=== PATIENT | male | born 1955 | race Asian ===

== ENCOUNTER 2016-12-17 10:22 | Emergency (ER) | payer MEDICAID ==
[~2016-12-17] VITALS: Ht 167.6 cm; Wt 68.0 kg
[~2016-12-17 10:22] MED LIST: ALBUTEROL SULFAT3 M1 IH; BANZEL400 MG GT; BIOTENE DRY MOU PO; BISCOLAX10 M1 PR; CETIRIZINE10 MG GT; COLACE100 MG/10 NG; DEXILANT60 MG GT; DIASTAT ACUDIAL20 MG GT; DIPHENHYDRAMINE25 M3 GT; DIPHENHYDRAMINE25 M8 GT; IBUPROFEN400 M1 GT; LEVETIRACETAM1000 MG GT; MAPAP325 MG GT; MELATONIN3 MG GT; PULMICORT0.5 MG/2 M HHN; SIMVASTATIN20 M1 GT; SINGULAIR10 MG GT; SINUS RINSE NS; VIMPAT200 MG GT
--- NOTE | 2016-12-17 10:25 | NUR ---
PT BIBA TO BED 3 AT THIS TIME.
[2016-12-17 10:30] VITALS: BP 148/82
--- NOTE | 2016-12-17 10:34 | NUR ---
BIBA DUE TO GT MALFUNCTION FROM BOARD AND CARE [facility], VITAL SIGN OBTAINED STABLE, PT NON VERBAL GT INTACT NO DRAINAGE NOTED, BUT THE GT IS BROWNISH ,WITH FOUL ODOR,FR 18, SKIN WARM TO TOUCH RESP. EVEN AND UNLABORED, PT WITH MENTAL RETARDATION.BODY ASSESSMENT DONE, SKIN INTACT.
--- NOTE | 2016-12-17 10:47 | NUR ---
DR. CLANCY AT BEDSIDE
[2016-12-17] MEDS ORDERED: LIDOCAINE 1% 500 MG/50 ML VIAL INJ ONE (12:00)
--- NOTE | 2016-12-17 12:04 | NUR ---
PT CALM,CAREGIVER AT BEDSIDE, VITAL SIGN STABLE, GT INTACT, NEW GT IN PLACE
[2016-12-17 13:31] VITALS: BP 111/55
--- NOTE | 2016-12-17 13:32 | NUR ---
PICKED UP BY [facility] FOR D/C TO [facility], PT EYES OPEN, AWAKE, NON VERBAL, JAKI CAREGIVER WITH THE PT, NEW GT INTACT, SKIN WARM TO TOUCH RESP. EVEN AND UNLABORED, NO BLEEDING NOTED ON GT.
== END 2016-12-17 13:32 ==
LOC: MED 10:22
DX: K94.23 Gastrostomy malfunction (principal); J45.909 Unspecified asthma, uncomplicated; K21.9 Gastro-esophageal reflux disease without esophagitis
CPT/HCPCS: 43760; 74241; 99284; J2001; Q0092

== ENCOUNTER 2018-04-03 20:28 | Emergency (ER) | payer MEDICAID ==
[~2018-04-03] VITALS: Ht 162.6 cm; Wt 72.6 kg
[~2018-04-03 20:28] MED LIST changes: +ACET-7568 GT; +ALBU-74 IH; -ALBUTEROL SULFAT3 M1 IH; -BANZEL400 MG GT; -BIOTENE DRY MOU PO; +BISA10SU62 PR; -BISCOLAX10 M1 PR; +CETI-55 GT; -CETIRIZINE10 MG GT; -COLACE100 MG/10 NG; -DEXILANT60 MG GT; +DEXL60EC GT; -DIASTAT ACUDIAL20 MG GT; +DIAZ20GE GT; +DIPH-722 GT; +DIPH25TA39 GT; -DIPHENHYDRAMINE25 M3 GT; -DIPHENHYDRAMINE25 M8 GT; +DOCU100L NG; +IBUP-2230 GT; -IBUPROFEN400 M1 GT; +LACO200T GT; +LEVE100021 GT; -LEVETIRACETAM1000 MG GT; -MAPAP325 MG GT; +MELA3TAB GT; -MELATONIN3 MG GT; +MONT10TA35 GT; +PUL.5N HHN; -PULMICORT0.5 MG/2 M HHN; +RUFI400T GT; +SIMV20TA6 GT; -SIMVASTATIN20 M1 GT; -SINGULAIR10 MG GT; -VIMPAT200 MG GT; +[UNRECOGNIZED DRUG - CODE] PO
[2018-04-03 20:29] VITALS: BP 129/74
--- NOTE | 2018-04-03 20:30 | NUR ---
PT [facility]. TAKEN TO BED 8
--- NOTE | 2018-04-03 20:35 | NUR ---
PATIENT IS A 62 Y/O MALE WHO PRESENTS TO THE ED C/O SEIZURE. PT IS FROM [facility]. PER [facility] EXPERIENCED TWO SEIZURES WITH UNKNOWN TIMES. PT IS IN NO VISIBLE SIGNS OF PAIN. PT IN NO SIGNS OF CP, SOB, N/V/D. PT IS NONVERBAL, PT HAS G-TUBE, RR EVEN/UNLABORED. PT REPOSITIONED FOR COMFORT, BED IN LOWEST POSITION. ER MD DR. CLANCY NOTIFIED. WILL CONTINUE TO MONITOR.
[2018-04-03] MEDS ORDERED: NACL 0.9% 1,000 ML IV ONE (20:40)
--- NOTE | 2018-04-03 20:41 | NUR ---
Dr. Flores evaluating patient at bedside.
--- NOTE | 2018-04-03 21:00 | NUR ---
# 13 FR STRAIGHT catheter with utilizing sterile technique. Immediate return of 30 ml CLEAR urine noted. Urine sample collected and sent to lab. Pt tolerated procedure WELL. Addendum: 04/03/18 at 2140 by MEDDCV # 14 FR STRAIGHT catheter with utilizing sterile technique. Immediate return of 30 ml CLEAR urine noted. Urine sample collected and sent to lab. Pt tolerated procedure WELL.
[2018-04-03 21:05] LABS: APPEARANCE,URINE CLEAR (CLEAR); BASOPHILS % (AUTO) 0.5 % (0.0-2.0); BILIRUBIN,URINE NEGATIVE (NEGATIVE); BLOOD, URINE NEGATIVE (NEGATIVE); COLOR,URINE YELLOW (YELLOW); EOSINOPHILS # (AUTO) 0.1 K/uL (0-0.4); EOSINOPHILS % (AUTO) 2.2 % (0.0-4.0); HEMATOCRIT 41.6 % (36-52); HEMOGLOBIN 13.1 g/dL (12.0-18.0); LEUKOCYTE ESTERASE ,URINE NEGATIVE (NEGATIVE); LYMPHOCYTES # (AUTO) 1.4 K/uL (2.0-11.5); LYMPHOCYTES % (AUTO) 29.9 % (20.5-51.1); MEAN CORPUSCULAR HEMOGLOBIN 22 pg (27-31); MEAN CORPUSCULAR HGB CONC 31 g/dL (33-37); MEAN CORPUSCULAR VOLUME 70.3 fL (80-94); MONOCYTES # (AUTO) 0.5 K/uL (0.8-1.0); MONOCYTES % (AUTO) 10.8 % (1.7-9.3); NEUTROPHILS # (AUTO) 2.6 K/uL (1.8-7.7); NEUTROPHILS % (AUTO) 56.6 % (42.2-75.2); NITRITE, URINE NEGATIVE (NEGATIVE); PH,URINE 7.5 (5.0-9.0); PLATELET COUNT (AUTO) 175 K/uL (140-450); RED BLOOD CELL COUNT(AUTO) 5.92 MIL/uL (4.20-6.10); RED CELL DISTRIBUTION WIDTH 14.7 % (11.6-13.7); UGLUCOSE NEGATIVE (NEGATIVE); WHITE BLOOD COUNT (AUTO) 4.6 K/uL (4.8-10.8)
[2018-04-03 21:21] LABS: RBC,URINE 0-5 (RARE) /HPF (0-5); WBC,URINE 0-5 (RARE) /HPF (0-5)
[2018-04-03 21:31] LABS: ANION GAP 14.4 (8-16); CARBON DIOXIDE 21.7 mmol/L (21-32); CREATININE 0.7 mg/dL (0.7-1.3); POTASSIUM 3.1 mmol/L (3.5-5.1)
[2018-04-03 21:37] LABS: TOTAL BILIRUBIN 0.2 mg/dL (0.0-1.0)
[2018-04-03] MEDS ORDERED: POTASSIUM CHLORIDE 10 MEQ TABER PO ONE (21:50)
--- NOTE | 2018-04-03 21:59 | NUR ---
LUIS ENRIQUE CONTACT [phone]
[2018-04-03] MEDS ORDERED: POTASSIUM CHLORIDE 20% 40 MEQ/15 ML UDC GT ONE (22:00)
[2018-04-03] MEDS ORDERED: POTASSIUM CHLORIDE 20% 40 MEQ/15 ML UDC ONE (22:00)
--- NOTE | 2018-04-03 22:00 | NUR ---
HETAL COMMERCIAL LOAN COORDINATORJAZMINELUIS ENRIQUE WENT HOME TO RECEIVE PT FOR TRANSPORT. [facility] CALLED. ETA 2 HOURS.
--- NOTE | 2018-04-03 22:15 | NUR ---
PATIENT RESTING AT THIS TIME. NO SIGNS OF DISTRESS.
--- NOTE | 2018-04-03 23:25 | NUR ---
[facility] TRANSPORT AT BEDSIDE
--- NOTE | 2018-04-03 23:33 | NUR ---
PT TAKEN BY [facility] TRANSPORT TO PT BOARD AND CARE
[2018-04-03 23:35] VITALS: BP 105/75
--- NOTE | 2018-04-03 23:35 | NUR ---
Patient discharged with v/s stable. Written and verbal after care instructions given and explained to AARON and LUIS ENRIQUE AIR HAMMER OPERATOR. Ambulance Transport with to custodial. All questions addressed prior to discharge. Advised to follow up with PMD.
== END 2018-04-03 23:35 | disposition home or self-care (01) ==
LOC: MED 20:28
DX: G40.909 Epilepsy, unspecified, not intractable, without status epilepticus (principal); E87.6 Hypokalemia; J45.909 Unspecified asthma, uncomplicated; K21.9 Gastro-esophageal reflux disease without esophagitis; Z79.899 Other long term (current) drug therapy
CPT/HCPCS: 36415; 80053; 81001; 85025; 96360; 96361; 99285; C1758

== ENCOUNTER 2018-04-28 20:09 | Emergency (ER) | payer MEDICAID ==
[~2018-04-28] VITALS: Ht 165.1 cm; Wt 61.2 kg
[2018-04-28 20:09] VITALS: BP 113/68
[~2018-04-28 20:09] MED LIST changes: -DEXL60EC GT; -DIPH-722 GT; -DOCU100L NG; -SINUS RINSE NS
--- NOTE | 2018-04-28 20:09 | NUR ---
BIB EMS FROM [facility]. REPORTED BY FIRE AND EMS THAT PT HAD A 10-15 SEC SEIZURE AT 19:30. WITNESSED BY [facility] STAFF. NO SEIZURE ACTIVITY WITNESSED BY FIRE OR EMS. PT HAS HX OF MENTAL DISABILITY AND QUADRIPLEGIA. VSS STABLE WITHOUT EVIDANCE OF PAIN AT THIS TIME. PT IS AFEBRILE 89.3. HE IS AWAKE AND FOLLOWS COMMANDS TO THE BEST OF HIS ABILITY. EMS DENIES N/V/D; SKIN IS PINK/WARM/DRY; AAOX4 UNABLE TO AMBULATE; LUNGS CLEAR BL; HR EVEN AND REGULAR; NO CP, SOB, OR COUGH AT THIS TIME; 0/10 AT THIS TIME; VSS; PATIENT POSITIONED FOR COMFORT; HOB ELEVATED; BEDRAILS UP X2; SEIZURE PADS IN PLACE; BED DOWN. ER MD MADE AWARE OF PT STATUS. CONTINUE TO MONITOR.
--- NOTE | 2018-04-28 20:09 | NUR ---
PATIENT BIB ALS TO ER BED 7.
--- NOTE | 2018-04-28 20:09 | NUR ---
Waleska mosqueda in [facility] - 04/28/18 at 2013 by MAURI PT BIBA BLS TAKEN TO BED 7
[2018-04-28] MEDS ORDERED: [UNRECOGNIZED DRUG - CODE] GT (20:31)
[2018-04-28] MEDS ORDERED: METO25TE2 GT (20:31)
[2018-04-28] MEDS ORDERED: ESOM40PK GT (20:31)
[2018-04-28] MEDS ORDERED: ALBU0.0912 INH (20:31)
[2018-04-28] MEDS ORDERED: [UNRECOGNIZED DRUG - CODE] GT (20:31)
[2018-04-28] MEDS ORDERED: [UNRECOGNIZED DRUG - CODE] GT (20:31)
[2018-04-28] MEDS ORDERED: POLY17PD GT (20:31)
--- NOTE | 2018-04-28 21:28 | NUR ---
X-Ray at bedside.
[2018-04-28] MEDS ORDERED: levETIRAcetam 100 MG/ML VIAL IV ONE ×2 (21:45→22:14)
--- NOTE | 2018-04-28 22:00 | NUR ---
PT IN BED WITH EYES OPEN AND RESTING. POSITIONED FOR COMFORT. CAREGIVER AT BEDSIDE. VSS. CONTINUE TO MONITOR.
[2018-04-28 22:12] LABS: BASOPHILS % (AUTO) 0.4 % (0.0-2.0); EOSINOPHILS # (AUTO) 0.1 K/uL (0-0.4); EOSINOPHILS % (AUTO) 0.6 % (0.0-4.0); HEMATOCRIT 41.8 % (36-52); HEMOGLOBIN 13.2 g/dL (12.0-18.0); LYMPHOCYTES # (AUTO) 1.5 K/uL (2.0-11.5); LYMPHOCYTES % (AUTO) 14.9 % (20.5-51.1); MEAN CORPUSCULAR HEMOGLOBIN 22 pg (27-31); MEAN CORPUSCULAR HGB CONC 32 g/dL (33-37); MEAN CORPUSCULAR VOLUME 70.8 fL (80-94); MONOCYTES # (AUTO) 0.8 K/uL (0.8-1.0); MONOCYTES % (AUTO) 7.8 % (1.7-9.3); NEUTROPHILS # (AUTO) 7.8 K/uL (1.8-7.7); NEUTROPHILS % (AUTO) 76.3 % (42.2-75.2); PLATELET COUNT (AUTO) 216 K/uL (140-450); RED BLOOD CELL COUNT(AUTO) 5.91 MIL/uL (4.20-6.10); RED CELL DISTRIBUTION WIDTH 14.6 % (11.6-13.7); WHITE BLOOD COUNT (AUTO) 10.2 K/uL (4.8-10.8)
[2018-04-28 22:21] LABS: ANION GAP 10.7 (8-16); CARBON DIOXIDE 28.9 mmol/L (21-32); CREATININE 0.8 mg/dL (0.7-1.3); POTASSIUM 3.6 mmol/L (3.5-5.1)
--- NOTE | 2018-04-28 22:30 | NUR ---
Dr. Nuñez evaluating patient at bedside.
--- NOTE | 2018-04-28 23:00 | NUR ---
AWAITING DISCHARGE DISPOSTION FROM DR TAPIA
[2018-04-28 23:23] VITALS: BP 111/58
--- NOTE | 2018-04-28 23:23 | NUR ---
Patient discharged with v/s stable. Written and verbal after care instructions given and explained. Patient verbalized understanding. Ambulance Transport with to long-term. All questions addressed prior to discharge. Advised to follow up with PMD.
--- NOTE | 2018-04-28 23:39 | NUR ---
PT IS DISCHARGED AT THIS TIME. CAREGIVER AT BEDSIDE. AWITING TRANSPORTATION. VSS. CONTINUE TO MONITOR. UNTIL PT LEAVES [facility] ER.
--- NOTE | 2018-04-29 00:05 | NUR ---
[facility] TRANSPORT AT BEDSIDE
--- NOTE | 2018-04-29 00:10 | NUR ---
[facility] TRANSPORT PICKED UP PATIENT TO RETURN TO BOARD AND CARE
[2018-04-29] MEDS ORDERED: levETIRAcetam 1,000 MG in NACL 0.9% 100 ML IV SCH (09:00)
== END 2018-04-28 23:39 | disposition home or self-care (01) ==
LOC: MED 20:09
DX: R56.9 Unspecified convulsions (principal); J44.9 Chronic obstructive pulmonary disease, unspecified; K21.9 Gastro-esophageal reflux disease without esophagitis; F79 Unspecified intellectual disabilities; Z93.1 Gastrostomy status
CPT/HCPCS: 36415; 71045; 80048; 85025; 93005; 96365; 99285; J1953

== ENCOUNTER 2018-05-10 19:46 | Emergency (ER) | payer SELFPAY ==
[~2018-05-10] VITALS: Ht 162.6 cm; Wt 65.8 kg
[2018-05-10 19:46] VITALS: BP 119/70
[~2018-05-10 19:46] MED LIST changes: +ALBU0.0912 INH; +ESOM40PK GT; +METO25TE2 GT; +POLY17PD GT; +[UNRECOGNIZED DRUG - CODE] GT; +[UNRECOGNIZED DRUG - CODE] GT; +[UNRECOGNIZED DRUG - CODE] GT
--- NOTE | 2018-05-10 19:46 | NUR ---
PT [facility]. TAKEN TO BED 10
--- NOTE | 2018-05-10 19:50 | NUR ---
PATIENT IS A 63 Y/O MALE BIB BLS WHO PRESENTS TO THE ED C/O SEIZURES. PER [facility], PT REPORTED TO HAVE X5 EPISODES OF SEIZURES LASTING 1-2 SECONDS X1 HOUR AGO. PT DOES NOT APPEAR TO BE IN ANY SIGN OF PAIN. PT IN NO SIGNS OF CP, SOB, N/V/D. PT NONVERBAL, RR EVEN/UNLABORED. PT REPOSITIONED FOR COMFORT, BED IN LOWEST POSITION. ER MD DR. TAPIA NOTIFIED. WILL CONTINUE TO MONITOR.
[2018-05-10] MEDS ORDERED: BENZ1TAB42 GT (20:46)
[2018-05-10] MEDS ORDERED: LORazepam 2 MG/ML VIAL IVP ONE (20:50)
[2018-05-10] MEDS ORDERED: levETIRAcetam 1,000 MG in NACL 0.9% 100 ML IV ONE (20:50)
[2018-05-10] MEDS ORDERED: levETIRAcetam 100 MG/ML VIAL IV ONE (20:56)
[2018-05-10 21:07] LABS: BASOPHILS % (AUTO) 0.4 % (0.0-2.0); EOSINOPHILS # (AUTO) 0.2 K/uL (0-0.4); EOSINOPHILS % (AUTO) 2.8 % (0.0-4.0); HEMATOCRIT 41.8 % (36-52); HEMOGLOBIN 12.9 g/dL (12.0-18.0); LYMPHOCYTES # (AUTO) 2.3 K/uL (2.0-11.5); LYMPHOCYTES % (AUTO) 30.1 % (20.5-51.1); MEAN CORPUSCULAR HEMOGLOBIN 22 pg (27-31); MEAN CORPUSCULAR HGB CONC 31 g/dL (33-37); MEAN CORPUSCULAR VOLUME 70.4 fL (80-94); MONOCYTES # (AUTO) 0.8 K/uL (0.8-1.0); NEUTROPHILS # (AUTO) 4.2 K/uL (1.8-7.7); NEUTROPHILS % (AUTO) 55.7 % (42.2-75.2); PLATELET COUNT (AUTO) 176 K/uL (140-450); RED BLOOD CELL COUNT(AUTO) 5.93 MIL/uL (4.20-6.10); RED CELL DISTRIBUTION WIDTH 14.9 % (11.6-13.7); WHITE BLOOD COUNT (AUTO) 7.6 K/uL (4.8-10.8)
--- NOTE | 2018-05-10 21:15 | NUR ---
Dr. Nuñez evaluating patient at bedside.
[2018-05-10 21:18] LABS: ANION GAP 10.9 (8-16); CARBON DIOXIDE 26.9 mmol/L (21-32); CREATININE 0.7 mg/dL (0.7-1.3); POTASSIUM 3.8 mmol/L (3.5-5.1)
[2018-05-10 21:48] LABS: PHENOBARBITAL < 1 ug/ml (15-40)
--- NOTE | 2018-05-10 22:35 | NUR ---
CALLED POORNIM[facility] AT [facility]. PT WILL BE TRANSPORTED BACK.
--- NOTE | 2018-05-10 23:07 | NUR ---
[facility] TRANSPORT AT BEDSIDE
[2018-05-10 23:10] VITALS: BP 111/71
--- NOTE | 2018-05-10 23:10 | NUR ---
Patient discharged with v/s stable. Written and verbal after care instructions given and explained. Patient verbalized understanding. Ambulance Transport with to retirement. All questions addressed prior to discharge. Advised to follow up with PMD.
== END 2018-05-10 23:10 | disposition home or self-care (01) ==
LOC: MED 19:46
DX: G40.909 Epilepsy, unspecified, not intractable, without status epilepticus (principal); J44.9 Chronic obstructive pulmonary disease, unspecified; K21.9 Gastro-esophageal reflux disease without esophagitis; Z79.899 Other long term (current) drug therapy
CPT/HCPCS: 36415; 71045; 80048; 80156; 80184; 80185; 85025; 93005; 96365; 96375; 99285; J1953; J2060

== ENCOUNTER 2018-06-23 21:54 | Emergency (ER) | payer SELFPAY ==
[~2018-06-23] VITALS: Ht 124.5 cm; Wt 54.4 kg
[2018-06-23 21:54] VITALS: BP 177/69
[~2018-06-23 21:54] MED LIST changes: +BENZ1TAB99 GT
--- NOTE | 2018-06-23 21:54 | NUR ---
PT TRANSFERED TO BED 5 FROM [facility]. TRANSPORTED TO [facility] VIA EMS. PT VSS UPON ARRIVAL.
--- NOTE | 2018-06-23 21:55 | NUR ---
PT BIBA FROM [facility] DUE TO G-TUBE COMING OUT. G-TUBE CAME OUT APPROX. 2109 ACCORDING TO THE BATTING MACHINE OPERATOR. KING. PT IS A QUADRAPELEGIC. SKIN IS PINK/WARM/DRY; NON VERBAL; HR EVEN AND REGULAR; PATIENT STATES PAIN OF 0/10 USING FLACC SCALE AT THIS TIME; VSS; PATIENT POSITIONED FOR COMFORT; HOB ELEVATED; BEDRAILS UP X2; BED DOWN. ER MD MADE AWARE OF PT STATUS.
--- NOTE | 2018-06-23 21:55 | NUR ---
Pt BIBA with complaint of G-tube pulled out "about [address] ago". [address] Flores. Inserted 18 fr, 15 ml G-tube in stoma without difficulty. Aspirated tube feeding/stomach contents for placement check. Pt tolerated well.
--- NOTE | 2018-06-23 22:15 | NUR ---
X RAY WITH PT
--- NOTE | 2018-06-23 22:51 | NUR ---
WAITING FOR AMBULANCE TO TAKE HOME, VITALS STABLE
[2018-06-23 23:26] VITALS: BP 117/69
--- NOTE | 2018-06-23 23:26 | NUR ---
Patient discharged with v/s stable. Written and verbal after care instructions given and explained. Patient's laboratory animal care veterinarian verbalized understanding. Ambulance Transport with to jail. All questions addressed prior to discharge. Advised to follow up with PMD.
== END 2018-06-23 23:26 ==
LOC: MED 21:54
DX: Z43.1 Encounter for attention to gastrostomy (principal); J44.9 Chronic obstructive pulmonary disease, unspecified; K21.9 Gastro-esophageal reflux disease without esophagitis; Z79.899 Other long term (current) drug therapy
CPT/HCPCS: 43760; 74018; 99284

== ENCOUNTER 2020-02-24 19:13 | Emergency (ER) | payer MEDICAID ==
[~2020-02-24] VITALS: Ht 167.6 cm; Wt 61.2 kg
[~2020-02-24 19:13] MED LIST changes: +BENZ-203 GT; -BENZ1TAB99 GT; +GUAI-1216 GT; -MELA3TAB GT; +MELA3TAB56 GT; +SIMV-30 GT; -SIMV20TA6 GT; -[UNRECOGNIZED DRUG - CODE] GT
--- NOTE | 2020-02-24 19:22 | NUR ---
PT BIBA BLS TO ER BED 04
[2020-02-24 19:27] VITALS: BP 128/76
--- NOTE | 2020-02-24 19:49 | NUR ---
64 Y/O M BIBA C/O CLOGGED G-TUBE, AND G-TUBE REPLACEMENT. PT NONVERBAL, AAO X0. NO RESPIRATORY DISTRESS NOTED, AIRWAY INTACT, SYMMETRICAL CHEST RISE. LUNG SOUNDS CLEAR UPON AUSCULTATION. PT DOES PRESENT WITH A CLOGGED G-TUBE. PER FACILITY, G-TUBE WAS RECENTLY REPLACED, BUT WAS REPLACED WITH A SMALLER CATHETER AND KEPT ON CLOGGING UP. BED IN LOWEST POSITION, SIDE RAIL UP X2. WILL CONTINUE TO MONITOR. NKA
--- NOTE | 2020-02-24 20:15 | NUR ---
DR. SELLERS AT BEDSIDE TO INSERT G-TUBE.
--- NOTE | 2020-02-24 20:18 | NUR ---
20FC G-TUBE INSERTED BY DR. SELLERS. PENDING X-RAY FOR CONFIRMATION.
--- NOTE | 2020-02-24 20:30 | NUR ---
RAD AT BEDSIDE.
--- NOTE | 2020-02-24 21:10 | NUR ---
SPOKE TO [facility] REGARDING UPDATE FOR PT. PT WILL BE TRANSFERRING BACK TO [facility], ETA 2304.
--- NOTE | 2020-02-24 22:00 | NUR ---
PT RESTING IN BED, ASLEEP. HOB ELEVATED. NO RESPIRATORY DISTRESS. BED IN LOWEST POSTION. SIDE RAIL UP X2. WILL CONTINUE TO MONITOR.
--- NOTE | 2020-02-24 23:00 | NUR ---
[facility] CALLED TO NOTIFY THEY ARE RUNNING 30 MINS LATE.
[2020-02-24 23:42] VITALS: BP 128/76
--- NOTE | 2020-02-24 23:44 | NUR ---
Patient discharged with v/s stable. Written and verbal after care instructions given and explained. Patient verbalized understanding. Ambulatory with steady gait. All questions addressed prior to discharge. Advised to follow up with PMD.
== END 2020-02-24 23:43 | disposition home or self-care (01) ==
LOC: MED 19:13
DX: K94.23 Gastrostomy malfunction (principal); J44.9 Chronic obstructive pulmonary disease, unspecified; K21.9 Gastro-esophageal reflux disease without esophagitis; Z43.1 Encounter for attention to gastrostomy; Z98.890 Other specified postprocedural states; Z79.899 Other long term (current) drug therapy
CPT/HCPCS: 43762; 74240; 99284; Q0092

== ENCOUNTER 2020-08-20 10:59 | Emergency (ER) | payer MEDICAID, SELFPAY ==
[~2020-08-20] VITALS: Ht 165.1 cm; Wt 70.3 kg
[~2020-08-20 10:59] MED LIST changes: -ACET-7568 GT; +ACET-8296 GT; -ALBU-74 IH; -ALBU0.0912 INH; +ASCO-672 GT; +BISA-218 RC; -BISA10SU62 PR; +BRIV100T GT; -DIAZ20GE GT; +DIAZ20GE MR; +DIPH25CA94 PO; -DIPH25TA39 GT; -ESOM40PK GT; +FAMO-90 GT; -GUAI-1216 GT; +IBUP-1842 PO; -IBUP-2230 GT; -LEVE100021 GT; +LOPE-202 PO; +MELA3TAB21 GT; -MELA3TAB56 GT; +METO-485 GT; +NUTR-813 GT; +PANT40EC PO; +PRON INH; +SENN-74 PO; +[UNRECOGNIZED DRUG - CODE] GT
[2020-08-20 11:04] VITALS: BP 120/71
[2020-08-20 15:31] VITALS: BP 110/65
== END 2020-08-20 15:29 ==
LOC: MED 10:59
DX: K94.23 Gastrostomy malfunction (principal); J45.909 Unspecified asthma, uncomplicated; K21.9 Gastro-esophageal reflux disease without esophagitis; Z98.890 Other specified postprocedural states; Z79.899 Other long term (current) drug therapy; Z95.0 Presence of cardiac pacemaker; Y84.9 Medical procedure, unspecified as the cause of abnormal reaction of the patient, or of later complication, without mention of misadventure at the time of the procedure
CPT/HCPCS: 99281

== ENCOUNTER 2021-01-14 09:31 | Emergency (ER) | payer MEDICAID, SELFPAY ==
[~2021-01-14] VITALS: Ht 170.2 cm; Wt 61.2 kg
[~2021-01-14 09:31] MED LIST changes: +DOCU100T42 GT; -[UNRECOGNIZED DRUG - CODE] GT
--- NOTE | 2021-01-14 09:32 | NUR ---
[facility]A BLS TAKEN TO BED 9
[2021-01-14 09:40] VITALS: BP 108/75
--- NOTE | 2021-01-14 09:47 | NUR ---
65 YEAR OLD MALE BIBA FROM [facility] FOR J TUBE LEAKING. PER EMS, [facility] STATES THAT PT HAD SOME COFFEE GROUND EMESIS NEAR STOMA SITE AND THAT THE J TUBE ITSELF WAS LEAKING NEAR ONE OF THE PORTS. PT ALERT AND AWAKE, AOX0 BASELINE, BREATHING EVEN AND UNLABORED, SKIN WARM AND DRY. BED IN LOWEST POSITION, LOCKED, BED RAIL UPX1. PMH - QUADREPLEGIC, SEIZURE, BARETTES ESOPHAGUS ALLERGIES - NKA
--- NOTE | 2021-01-14 09:55 | NUR ---
Dr. Flores is evaluating patient at bedside
--- NOTE | 2021-01-14 10:00 | NUR ---
J TUBE REPLACED BY DR CLANCY AT BEDSIDE, NO COMPLICATIONS NOTED.
[2021-01-14] MEDS ORDERED: DIAZ20GE TOP (10:17)
[2021-01-14] MEDS ORDERED: BACL10TA4 GT (10:17)
[2021-01-14] MEDS ORDERED: [UNRECOGNIZED DRUG - CODE] GT (10:17)
[2021-01-14] MEDS ORDERED: ZINC220C28 GT (10:17)
[2021-01-14] MEDS ORDERED: CHOL500040 GT (10:17)
[2021-01-14] MEDS ORDERED: FAMO-90 GT (10:18)
--- NOTE | 2021-01-14 12:25 | NUR ---
REPORT GIVEN TO HAIRSPRING STUDDER AT FACILITY, INFORMED OF CHANGE FROM J TUBE TO G TUBE BY JACKY
--- NOTE | 2021-01-14 13:04 | NUR ---
Pt in bed, equal and visible rise and fall of chest. Side rails up bed locked and in lowest position. VSS, will continue to monitor.
--- NOTE | 2021-01-14 15:40 | NUR ---
dPatient discharged with v/s stable. Written and verbal after care instructions given and explained, signed by 2 nurses . Patient verbalized understanding. Ambulance Transport with to [facility]. All questions addressed prior to discharge. Advised to follow up with PMD.
[2021-01-14 15:41] VITALS: BP 107/58
== END 2021-01-14 15:40 | disposition home or self-care (01) ==
LOC: MED 09:31
DX: K94.23 Gastrostomy malfunction (principal); R05 Cough; K21.9 Gastro-esophageal reflux disease without esophagitis; J45.909 Unspecified asthma, uncomplicated; Z79.899 Other long term (current) drug therapy; Z95.0 Presence of cardiac pacemaker; Z98.890 Other specified postprocedural states
CPT/HCPCS: 49450; 99284

== ENCOUNTER 2021-10-25 18:23 | Emergency (ER) | payer MEDICAID ==
[~2021-10-25] VITALS: Ht 162.6 cm; Wt 57.2 kg
[~2021-10-25 18:23] MED LIST changes: -ACET-8296 GT; +BACL10TA4 GT; -BENZ-203 GT; +BENZ-315 GT; -BISA-218 RC; +CHOL500040 GT; +CLOB10TA2 GT; -DIAZ20GE MR; -DIPH25CA94 PO; +ESOM40EC PO; -IBUP-1842 PO; +LACT10SO11 GT; -LOPE-202 PO; -METO-485 GT; +METO5SOL20 GT; +MULT-2416 TD; -NUTR-813 GT; +OMEP20EC11 GT; -PANT40EC PO; -PRON INH; -PUL.5N HHN; +PUL.5N NEB; +SENN-73 GT; -SENN-74 PO; +ZINC220C28 GT; -[UNRECOGNIZED DRUG - CODE] GT; -[UNRECOGNIZED DRUG - CODE] GT; -[UNRECOGNIZED DRUG - CODE] PO
--- NOTE | 2021-10-25 18:23 | NUR ---
ALMA ROSA ROSE FROM [facility] TO HAVE MORALES BAG REMOVED FROM G-TUBE. DR. CUENCA REMOVED MORALSE BAG FROM PT G-TUBE WHILE STILL ON AMBULANCE GURNEY
[2021-10-25 18:26] VITALS: BP 134/96
--- NOTE | 2021-10-25 18:31 | NUR ---
PT BIBA AND TAKEN TO BED 3
--- NOTE | 2021-10-25 18:42 | NUR ---
SPOKE TO ASHLEY FROM [facility] . STATES SHE CANNOT PICK PATIENT UP UNTIL 9-10AM TOMORROW MORNING.
[2021-10-25] MEDS ORDERED: DEXT 5% / LACT RING 1,000 ML IV ONE (19:10)
--- NOTE | 2021-10-25 20:47 | NUR ---
PATIENT SLEEPING COMFORTABL ESTABLE VITALS SIGNS IN NORMAL LIMITS
--- NOTE | 2021-10-26 05:04 | NUR ---
PATIENT SLEEPING COMFORTABLE AT THIS TIME VITALS SIGNS IN NORMAL LIMITS SR 98 ON MONITOR//DiCaprio RN
--- NOTE | 2021-10-26 07:08 | NUR ---
PATIENT ALERT NOT COMPLAINING OF PAIN VITALS SIGNS IN NORMAL LIMITS SR 86
--- NOTE | 2021-10-26 07:35 | NUR ---
RECEIVED REPORT FROM BJORN AGUILERA. ASSUMED CARE AT THIS TIME.
--- NOTE | 2021-10-26 07:51 | NUR ---
PATIENT SITTING UP IN BED, EYES OPEN. ON BEDSIDE BRANCH LENDING MANAGER, WILL CONTINUE TO MONITOR.
--- NOTE | 2021-10-26 09:00 | NUR ---
SPOKE WITH CAREGIVER ASHLEY STATING SHE IS ENROUTE TO PICK PATIENT UP.
--- NOTE | 2021-10-26 10:19 | NUR ---
CAREGIVER BEDSIDE TO TRANSPORT PATIENT HOME.
[2021-10-26 10:36] VITALS: BP 128/79
--- NOTE | 2021-10-26 10:36 | NUR ---
Patient discharged with v/s stable. Written and verbal after care instructions given and explained. Patient verbalized understanding. Wheel Chair Assisted with by caregiver. All questions addressed prior to discharge. Advised to follow up with PMD.
--- NOTE | 2021-11-05 10:15 | NUR ---
LATE ENTRY- IV DEXTROSE 5%/LR DISCONTINUED AT 1036.
== END 2021-10-26 10:36 ==
LOC: MED 18:23
DX: K94.23 Gastrostomy malfunction (principal); J45.909 Unspecified asthma, uncomplicated; K21.9 Gastro-esophageal reflux disease without esophagitis; Z79.899 Other long term (current) drug therapy; Z98.890 Other specified postprocedural states; Z95.0 Presence of cardiac pacemaker
CPT/HCPCS: 96365; 96366; 99285

== ENCOUNTER 2023-01-08 23:43 | Inpatient (IN) | payer MEDICAID ==
[~2023-01-08] VITALS: Ht 165.1 cm; Wt 50.8 kg
[~2023-01-08 23:43] MED LIST changes: +CLOB10TA GT; -CLOB10TA2 GT; -FAMO-90 GT; +FER300L GT; +MONT-72 GT; -MONT10TA35 GT
--- NOTE | 2023-01-08 23:44 | NUR ---
PT TO 5 BIBA ALS
--- NOTE | 2023-01-08 23:45 | NUR ---
Patient being evaluated by physician at bedside.
--- NOTE | 2023-01-08 23:45 | NUR ---
PT RC'D IN ROOM 5,PT BIBA FOR LOW BP. PT WAS IN THE MIDDLE OF A TRANSFER, FOR ABNORMAL LAB VALUES, WHEN ALS NOTICED THAT PT BP WAS LOW, 79/38. ALS DECIDED TO BRING PT TO ER FOR LOW BP. NKDA HX OF HEP B, SEIZURES, QUADRIPLEGIA, ASTHMA, HERNIA, GASTRITIS
[2023-01-08 23:50] VITALS: BP 107/41
[2023-01-09] MEDS ORDERED: NACL 0.9% 1,000 ML IV ONE
[2023-01-09 00:37] LABS: BASOPHILS % (AUTO) 0.2 % (0.0-2.0); EOSINOPHILS # (AUTO) 0.1 K/uL (0-0.4); EOSINOPHILS % (AUTO) 0.8 % (0.0-4.0); LYMPHOCYTES # (AUTO) 1.3 K/uL (2.0-11.5); LYMPHOCYTES % (AUTO) 15.9 % (20.5-51.1); MEAN CORPUSCULAR HEMOGLOBIN 25 pg (27-31); MEAN CORPUSCULAR HGB CONC 32 g/dL (33-37); MEAN CORPUSCULAR VOLUME 76.5 fL (80-94); MONOCYTES # (AUTO) 0.8 K/uL (0.8-1.0); MONOCYTES % (AUTO) 9.6 % (1.7-9.3); NEUTROPHILS % (AUTO) 73.5 % (42.2-75.2); PLATELET COUNT (AUTO) 214 K/uL (140-450); RED BLOOD CELL COUNT(AUTO) 2.41 MIL/uL (4.20-6.10); RED CELL DISTRIBUTION WIDTH 21.4 % (11.6-13.7); WHITE BLOOD COUNT (AUTO) 8.2 K/uL (4.8-10.8)
[2023-01-09 00:41] LABS: HEMATOCRIT 18.4 % (36-52); HEMOGLOBIN 5.9 g/dL (12.0-18.0)
[2023-01-09 00:59] LABS: APPEARANCE,URINE CLEAR (CLEAR); BILIRUBIN,URINE NEGATIVE (NEGATIVE); BLOOD, URINE TRACE-I (NEGATIVE); COLOR,URINE YELLOW (YELLOW); LEUKOCYTE ESTERASE ,URINE NEGATIVE (NEGATIVE); NITRITE, URINE POSITIVE (NEGATIVE); PH,URINE 6.5 (5.0-9.0); UGLUCOSE NEGATIVE (NEGATIVE)
[2023-01-09 01:00] LABS: ALBUMIN 2.3 g/dL (3.4-5.0); ASPARTATE AMINOTRANSFERASE 25 U/L (15-37); CARBON DIOXIDE 30.5 mmol/L (21-32); CHLORIDE 104 mmol/L (98-107); CREATININE 0.4 mg/dL (0.6-1.3); GFR ARICAN-AMERICAN 277 mL/min (>90); GLUCOSE 114 mg/dL (74-106); POTASSIUM 3.5 mmol/L (3.5-5.1); SODIUM SERUM 137 mmol/L (136-145); TOTAL BILIRUBIN 0.3 mg/dL (0.0-1.0); UREA NITROGEN, BLOOD 12 mg/dL (7-18)
[2023-01-09 01:34] LABS: WBC,URINE 0-5 /HPF (0-5)
--- NOTE | 2023-01-09 03:30 | NUR ---
FIRST UNIT OF [facility]S BEGUN.
[2023-01-09] MEDS ORDERED: NACL 0.9% 500 ML IV ONE (04:20)
[2023-01-09] MEDS ORDERED: CALCIUM GLUC 1 GM/50 mL NS BAG 50 ML IV STA (04:35)
[2023-01-09] MEDS ORDERED: cefTRIAXone 1,000 MG VIAL ONE (05:01)
[2023-01-09] MEDS ORDERED: [UNRECOGNIZED DRUG - CODE] PO (05:19)
[2023-01-09] MEDS ORDERED: MULT-2247 PO (05:19)
[2023-01-09] MEDS ORDERED: FAMO-92 PO (05:19)
[2023-01-09] MEDS ORDERED: PANT40EC PO (05:19)
--- NOTE | 2023-01-09 05:30 | NUR ---
BLOOD TRANSFUSION COMPLETED.
--- NOTE | 2023-01-09 06:00 | NUR ---
PT RESTING IN BED, RESP NORMAL AND UNLABORED, CONFIDENTIAL SECRETARY NSR & BP LOW. ERMD AWARE.
--- NOTE | 2023-01-09 07:22 | NUR ---
Recieved report from BJORN Hardin for transfer of care.
[2023-01-09] MEDS ORDERED: DOCUSATE SODIUM 100 MG GELCAP PO PRN (07:40)
[2023-01-09] MEDS ORDERED: MORPHINE SULFATE 2 MG/ML SYR IVP PRN (07:40)
[2023-01-09] MEDS ORDERED: ZOLPIDEM 10 MG TAB PO PRN (07:40)
[2023-01-09] MEDS ORDERED: POTASSIUM CHLORIDE 10 MEQ TABER PO PRN (07:40)
[2023-01-09] MEDS ORDERED: MAG SULF 2000 MG/WATER PREMIX 50 ML IV PRN (07:40)
[2023-01-09] MEDS ORDERED: LORazepam 2 MG/ML VIAL IVP PRN (07:40)
--- NOTE | 2023-01-09 08:00 | NUR ---
Patient noted with a loose bowel movement. Patient was made clean and dry.
--- NOTE | 2023-01-09 08:02 | NUR ---
Dr. Felton, admitting doctor, evaluating patient at bedside.
--- NOTE | 2023-01-09 08:58 | NUR ---
Patient will be admitted to care of Dr. Felton. Admited to Telemetry. Will go to room 108-A. Belongings list completed. Report to BJORN Aggarwal.
[2023-01-09] MEDS ORDERED: NON-FORMULARY ITEM (Lacosamide (Vimpat) 200 MG) GT/PO SCH (09:00)
[2023-01-09 09:13] VITALS: BP 97/54
--- NOTE | 2023-01-09 09:25 | NUR ---
The patient's care was reviewed and supervised by [facility] ED, RN.
[2023-01-09 12:00] VITALS: BP 101/47
[2023-01-09] MEDS: LACTULOSE 20 GM/30 ML UDC GT SCH (12:15)
[2023-01-09] MEDS: LACOSAMIDE 200 MG GT SCH ×2 (12:26→20:40)
[2023-01-09 12:59] LABS: BASOPHILS % (AUTO) 0.4 % (0.0-2.0); EOSINOPHILS # (AUTO) 0.1 K/uL (0-0.4); EOSINOPHILS % (AUTO) 0.7 % (0.0-4.0); HEMATOCRIT 24.8 % (36-52); LYMPHOCYTES % (AUTO) 13.6 % (20.5-51.1); MEAN CORPUSCULAR HEMOGLOBIN 25 pg (27-31); MEAN CORPUSCULAR HGB CONC 32 g/dL (33-37); MEAN CORPUSCULAR VOLUME 77.5 fL (80-94); MONOCYTES # (AUTO) 0.6 K/uL (0.8-1.0); MONOCYTES % (AUTO) 8.5 % (1.7-9.3); NEUTROPHILS # (AUTO) 5.8 K/uL (1.8-7.7); NEUTROPHILS % (AUTO) 76.8 % (42.2-75.2); PLATELET COUNT (AUTO) 225 K/uL (140-450); RED CELL DISTRIBUTION WIDTH 20.1 % (11.6-13.7); WHITE BLOOD COUNT (AUTO) 7.5 K/uL (4.8-10.8)
[2023-01-09 16:00] VITALS: BP 99/53
--- NOTE | 2023-01-09 16:55 | NUR ---
PATIENT HAS BEEN SCREENED AND CATEGORIZED HIGH NUTRITION RISK. PATIENT WILL BE SEEN WITHIN 1-2 DAYS OF ADMISSION. [facility]NS REFERRAL RECEIVED FOR "TUBE FEEDING/TPN" ON 01/09/23 REVIEWED BY MAURICE MERCER RD
--- NOTE | 2023-01-09 18:37 | NUR ---
PT ADMITTED FOR ANEMIA AND HYPOTENSION. VSS, AFEBRILE, APPEARS COMFORTABLE. SATING 99% ON RA. GTUBE INTACT. MORALES CATHTET PATENT, ADEQUATE OUTPUT. TURNED Q2. ALL NEEDS MET, SAFETY AND COMFORT MEASURES MAINTAINED, CALL LIGHT WITHIN REACH.
[2023-01-09 20:00] VITALS: BP 101/86
--- NOTE | 2023-01-09 20:00 | NUR ---
Patient's Plan of Care was discussed and reviewed with LEAD CAREGIVER: THANIA STEPHENSON
[2023-01-09] MEDS: SENNA 8.6 MG TAB GT SCH (20:51)
--- NOTE | 2023-01-09 21:15 | NUR ---
RECEIVED REPORT FROM THALIA SHEEHAN FOR CONTINUITY OF CARE. PT AWAKE IN BED. ON SENIOR MATERIALS PLANNER. RESPIRATIONS EVEN AND UNLABORED ON RA. PT NPO WITH G-TUBE, PATENT AND INTACT. NO TUBE FEEDING. FNS CONSULT IN PLACE. IV SITE ON LEJ 20G, SL. MORALES CATHETER IN PLACE, DRAINING TO GRAVITY. INITIAL ASSESSMENT DONE. POC DISCUSSED TO BJORN HANSEN. SZ AND SAFETY PRECAUTIONS IN PLACE.
[2023-01-09] MEDS: NACL 0.9% 1,000 ML IV SCH (21:53)
--- NOTE | 2023-01-09 21:53 | NUR ---
RECEIVED ORDER FROM DR COWAN FOR NS AT 100ML/HR. ORDER CARRIED OUT.
[2023-01-10] VITALS: BP 97/43
[2023-01-10 04:00] VITALS: BP 102/49
--- NOTE | 2023-01-10 05:08 | NUR ---
DID MORNING CARE. REPOSITIONED PT. PT TOLERATED WELL. DRAINED 800CC OF CLEAR YELLOW URINE. NO SIGNS OF PAIN. NO DISTRESS NOTED. SAFETY PRECAUTIONS IN PLACE.
[2023-01-10 07:15] LABS: BASOPHILS % (AUTO) 0.2 % (0.0-2.0); EOSINOPHILS % (AUTO) 0.1 % (0.0-4.0); HEMATOCRIT 28.5 % (36-52); HEMOGLOBIN 8.7 g/dL (12.0-18.0); LYMPHOCYTES # (AUTO) 0.7 K/uL (2.0-11.5); LYMPHOCYTES % (AUTO) 6.1 % (20.5-51.1); MEAN CORPUSCULAR HEMOGLOBIN 25 pg (27-31); MEAN CORPUSCULAR HGB CONC 31 g/dL (33-37); MONOCYTES # (AUTO) 0.6 K/uL (0.8-1.0); MONOCYTES % (AUTO) 5.5 % (1.7-9.3); NEUTROPHILS # (AUTO) 9.8 K/uL (1.8-7.7); NEUTROPHILS % (AUTO) 88.1 % (42.2-75.2); PLATELET COUNT (AUTO) 252 K/uL (140-450); RED BLOOD CELL COUNT(AUTO) 3.56 MIL/uL (4.20-6.10); RED CELL DISTRIBUTION WIDTH 19.5 % (11.6-13.7); WHITE BLOOD COUNT (AUTO) 11.1 K/uL (4.8-10.8)
--- NOTE | 2023-01-10 07:22 | NUR ---
ENDORSED PT TO BJORN TAYLOR FOR CONTINUITY OF CARE. ALL NEEDS MET THROUGHOUT SHIFT. PT IS STABLE.
[2023-01-10 08:00] VITALS: BP 138/68
[2023-01-10 08:31] LABS: CARBON DIOXIDE 27.5 mmol/L (21-32); CREATININE 0.5 mg/dL (0.6-1.3); POTASSIUM 3.5 mmol/L (3.5-5.1)
[2023-01-10] MEDS: NACL 0.9% 1,000 ML IV SCH ×2 (10:31→17:40)
[2023-01-10] MEDS: LACTULOSE 20 GM/30 ML UDC GT SCH (10:31)
[2023-01-10] MEDS: LACOSAMIDE 200 MG GT SCH ×2 (10:32→21:20)
[2023-01-10] MEDS: ONDANSETRON 4 MG/2 ML VIAL IVP PRN (10:51)
[2023-01-10 12:00] VITALS: BP 142/72
[2023-01-10] MEDS: ACETAMINOPHEN 325 MG TAB PO PRN ×2 (12:01→21:51)
[2023-01-10 16:00] VITALS: BP 113/53
--- NOTE | 2023-01-10 18:36 | NUR ---
PT NONVERBAL, APPEARS COMFORTABLE. VSS. MAX TEMP 101.7F, TYLENOL GIVEN AND COOLING MEASURES APPLIED. MD MADE AWARE. SATING 99% ON RA, COARSE BREATH SOUNDS, CXR ORDERED PER MD ORDERS. ST ON TELE. NPO, GTUBE TO GRAVITY. COFFEE GROUND EMESIS X1, ANTIEMETIC GIVEN, MD MADE AWARE. FC INTACT, ADEQUATE URINE OUTPUT. NO BOWEL MOVEMENT NOTED. TURNED Q2. IV ABX INITIATED. ALL NEEDS MET, SAFETY AND COMFORT MEASURES MAINTAINED, CALL LIGHT WITHIN REACH.
--- NOTE | 2023-01-10 19:10 | NUR ---
RECEIVED REPORT FROM BJORN TAYLOR FOR CONTINUITY OF CARE. PT SLEEPING, EASILY AROUSABLE BY VERBAL STIMULI. ON WEIGHT TRAINING INSTRUCTOR. RESPIRATIONS EVEN AND UNLABORED ON RA. MORALES CATHETER IN PLACE, DRAINING WELL. G-TUBE CONNECTED TO BAG, DRAINING TO GRAVITY. INITIAL ASSESSMENT DONE. POC DISCUSSED. CALL LIGHT WITHIN REACH. SAFETY PRECAUTIONS IN PLACE.
--- NOTE | 2023-01-10 19:50 | NUR ---
ENDORSED PT TO BJORN FAIR FOR CONTINUITY OF CARE. PT IS STABLE.
[2023-01-10 20:00] VITALS: BP 120/56
[2023-01-10] MEDS: SENNA 8.6 MG TAB GT SCH (21:20)
[2023-01-11] VITALS: BP 115/58
[2023-01-11] MEDS: NACL 0.9% 1,000 ML IV SCH ×3 (03:40→23:40)
[2023-01-11 04:00] VITALS: BP 127/55
[2023-01-11 06:32] LABS: BASOPHILS % (AUTO) 0.3 % (0.0-2.0); EOSINOPHILS # (AUTO) 0.1 K/uL (0-0.4); HEMATOCRIT 25.3 % (36-52); HEMOGLOBIN 7.7 g/dL (12.0-18.0); LYMPHOCYTES # (AUTO) 1.3 K/uL (2.0-11.5); LYMPHOCYTES % (AUTO) 15.9 % (20.5-51.1); MEAN CORPUSCULAR HEMOGLOBIN 25 pg (27-31); MEAN CORPUSCULAR HGB CONC 31 g/dL (33-37); MEAN CORPUSCULAR VOLUME 80.5 fL (80-94); MONOCYTES # (AUTO) 0.8 K/uL (0.8-1.0); MONOCYTES % (AUTO) 9.5 % (1.7-9.3); NEUTROPHILS % (AUTO) 73.3 % (42.2-75.2); PLATELET COUNT (AUTO) 242 K/uL (140-450); RED BLOOD CELL COUNT(AUTO) 3.15 MIL/uL (4.20-6.10); RED CELL DISTRIBUTION WIDTH 19.2 % (11.6-13.7); WHITE BLOOD COUNT (AUTO) 8.2 K/uL (4.8-10.8)
[2023-01-11 06:55] LABS: ANION GAP 10.3 (8-16); CARBON DIOXIDE 25.3 mmol/L (21-32); CREATININE 0.4 mg/dL (0.6-1.3); POTASSIUM 3.6 mmol/L (3.5-5.1)
--- NOTE | 2023-01-11 07:36 | NUR ---
GOT REPORT FROM THE NIGHT NURSE, PT SLEEPING, NO SOB NOTED.[id number]
[2023-01-11 08:00] VITALS: BP 127/64
[2023-01-11] MEDS: LACTULOSE 20 GM/30 ML UDC GT SCH (09:04)
[2023-01-11] MEDS: LACOSAMIDE 200 MG GT SCH ×2 (09:11→21:27)
[2023-01-11 12:00] VITALS: BP 124/60
--- NOTE | 2023-01-11 16:05 | NUR ---
01/11/23 RD INITIAL ASSESSMENT COMPLETED. PLEASE REFER TO NUTRITION ASSESSMENT UNDER CARE ACTIVITY FOR ESTIMATED NUTRITIONAL NEEDS. 1. WHEN/IF MEDICALLY APPROPRIATE, RECOMMEND JEVITY 1.2 DANE WITH A GOAL RATE OF 50 ML/HR. -START AT 20 ML/HR AND INCREASE BY 20 ML Q4H UNTIL GOAL RATE IS REACHED PT TOLERATES -FWF 100 ML Q8H THIS WILL PROVIDE 1440 KCAL, 67 GRAMS OF PROTEIN, AND 968 ML FREE WATER MEETING 100% OF ESTIMATED ENERGY REQUIREMENTS; ADEQUATE. 2. MONITOR NPO STATUS AND GI SYMPTOMS. 3. RD TO FOLLOW-UP 2-3 DAYS, HIGH RISK TYRELL MILLER RD
[2023-01-11 18:15] VITALS: BP 124/60
--- NOTE | 2023-01-11 19:04 | NUR ---
GAVE REPORT TO THE NIGHT NURSE.[id number]
--- NOTE | 2023-01-11 19:04 | NUR ---
GAVE REPORT TO THE NIGHT NURSE.[id number]
--- NOTE | 2023-01-11 19:04 | NUR ---
GAVE REPORT TO THE NIGHT NURSE.[id number]
--- NOTE | 2023-01-11 19:15 | NUR ---
RECEIVED REPORT FROM DAY RN FOR CONTINUITY OF CARE. AWAKE,RESTING IN BED,PT IS APHASIC. ON HEATING ELEMENT WINDER. RESPIRATIONS EVEN AND UNLABORED ON RA. MORALES CATHETER IN PLACE, DRAINING WELL. G-TUBE IN PLACE, AWAITING FEEDING. ALL PRECAUTIONS IN PLACE.. CALL LIGHT WITHIN REACH. SAFETY PRECAUTIONS IN PLACE.
--- NOTE | 2023-01-11 19:39 | NUR ---
TUBE FEEDING STARTED.PT TOLERATING WELL. WILL CONTINUE TO MONITOR.
[2023-01-11 20:00] VITALS: BP 144/67
[2023-01-11] MEDS: SENNA 8.6 MG TAB GT SCH (21:27)
--- NOTE | 2023-01-11 21:30 | NUR ---
scheduled medications given. no acute drug reaction noted.pt tolerated well. no residual noted from g tube. all precautions in place.hob elevated.will continue to monitor.
[2023-01-11] MEDS: ONDANSETRON 4 MG/2 ML VIAL IVP PRN (22:17)
[2023-01-12] VITALS: BP 128/65
[2023-01-12 04:00] VITALS: BP 137/67
--- NOTE | 2023-01-12 06:29 | NUR ---
PT IS STABLE. NO ACUTE EVENTS THROUGHOUT THE NIGHT.ALL NEEDS ATTENDED. NO S/SX OF DISTRESS AT THIS TIME. NO COMPLAINS OF PAIN. ALL PRECAUTIONS IN PLACE. CALL LIGHT WITHIN REACH. WILL ENDORSE TO DAY SHIFT NURSE.
[2023-01-12 07:10] LABS: BASOPHILS % (AUTO) 0.2 % (0.0-2.0); EOSINOPHILS # (AUTO) 0.1 K/uL (0-0.4); EOSINOPHILS % (AUTO) 0.8 % (0.0-4.0); HEMATOCRIT 26.8 % (36-52); HEMOGLOBIN 8.3 g/dL (12.0-18.0); LYMPHOCYTES # (AUTO) 1.1 K/uL (2.0-11.5); LYMPHOCYTES % (AUTO) 12.4 % (20.5-51.1); MEAN CORPUSCULAR HEMOGLOBIN 25 pg (27-31); MEAN CORPUSCULAR HGB CONC 31 g/dL (33-37); MEAN CORPUSCULAR VOLUME 79.2 fL (80-94); MONOCYTES # (AUTO) 0.8 K/uL (0.8-1.0); MONOCYTES % (AUTO) 9.3 % (1.7-9.3); NEUTROPHILS # (AUTO) 6.7 K/uL (1.8-7.7); NEUTROPHILS % (AUTO) 77.3 % (42.2-75.2); PLATELET COUNT (AUTO) 313 K/uL (140-450); RED BLOOD CELL COUNT(AUTO) 3.39 MIL/uL (4.20-6.10); RED CELL DISTRIBUTION WIDTH 19.1 % (11.6-13.7); WHITE BLOOD COUNT (AUTO) 8.6 K/uL (4.8-10.8)
--- NOTE | 2023-01-12 07:10 | NUR ---
RECEIVED REPORT FROM NIGHT NURSE MARV FOR CONTINUITY OF CARE. INITIAL ASSESSMENT DONE. LT EJ INTACT AND PATENT. G-TUBE STOMA INTACT. F/C INTACT, DRAINING YELLOW URINE. NO S/S OF ANY PAIN OF DISCOMFORT. CALL LIGHT KEPT WITHIN REACH. WILL CONTINUE TO MONITOR.
[2023-01-12 07:26] LABS: ANION GAP 8.8 (8-16); CARBON DIOXIDE 27.7 mmol/L (21-32); CREATININE 0.5 mg/dL (0.6-1.3); POTASSIUM 3.5 mmol/L (3.5-5.1)
[2023-01-12 08:00] VITALS: BP 130/57
[2023-01-12] MEDS: LACTULOSE 20 GM/30 ML UDC GT SCH (09:28)
[2023-01-12] MEDS: LACOSAMIDE 200 MG GT SCH (09:29)
--- NOTE | 2023-01-12 09:29 | NUR ---
SCHEDULED MEDICATIONS GIVEN VIA G-TUBE. RESIDUAL CHECK. TOLERATING WELL.
[2023-01-12] MEDS: NACL 0.9% 1,000 ML IV SCH (09:40)
[2023-01-12 12:00] VITALS: BP 111/61
--- NOTE | 2023-01-12 13:59 | NUR ---
RECEIVED CALLED FROM [facility]. REPORT GIVEN TO EM. INFORMED EM TRANSPORTATION ARRANGE BY [employer], SHOVEL MECHANIC TIME BETWEEN [phone].
--- NOTE | 2023-01-12 14:15 | NUR ---
NILAY TESTER/LIFT TRUCKERSHANIQUA WARE; GOT A CALL TO SET UP TRANSPORTATION FOR PT TO GO BACK TO BOARD AND CARE NAMED [facility] LOCATED [address] [place] [address]. CALLED FACILITY TO OBTAIN ROOM NUMBER AND CONFIRM ADDRESS BUT THE LET ME KNOW THAT THEY WOULD GET HIM TO A ROOM WHEN HE GOT THERE. TRANSPORTATION SET UP WITH VINAY AT [facility] . WITH A [id number] TABLE AND DESK FINISHER TIME
[2023-01-12 16:00] VITALS: BP 132/72
--- NOTE | 2023-01-12 17:40 | NUR ---
PT LEFT. DISCHARGE BACK TO [facility]. [facility] VIA [place]. ACCOMPANIED BY 2 MALE TRANSPORTER. ALERT, NON VERBAL. RESP. EVEN UNLABORED. G-TUBE INTACT, PATENT. IV AND ID BAND REMOVED. F/C DISCONTINUE. TOLERATING WELL. REMAINS STABLE.
== END 2023-01-12 17:40 | disposition home or self-care (01) | DRG 720 ==
LOC: MED 23:43 → MTU 01-09 02:53
PROVIDERS: ADMIT Family Medicine; ATTEND Family Medicine
PROC: 30233N1 Transfusion of Nonautologous Red Blood Cells into Peripheral Vein, Percutaneous Approach (ICD-10-PCS; principal; 2023-01-09)
DX: A41.9 Sepsis, unspecified organism (principal); E43 Unspecified severe protein-calorie malnutrition; R56.9 Unspecified convulsions; E83.51 Hypocalcemia; E88.09 Other disorders of plasma-protein metabolism, not elsewhere classified; D64.9 Anemia, unspecified; N39.0 Urinary tract infection, site not specified; Z20.822 Contact with and (suspected) exposure to COVID-19; J45.909 Unspecified asthma, uncomplicated; K21.9 Gastro-esophageal reflux disease without esophagitis; D72.810 Lymphocytopenia; Z68.1 Body mass index [BMI] 19.9 or less, adult
CPT/HCPCS: 36415; 36430; 71045; 80048; 80053; 81001; 83605; 83735; 84484; 85025; 86886; 86900; 86901; 86920; 87040; 87086; 93005; 96361; 96365; 99291; J0610; J0696; J2405; J7060; P9016; Q0092